=== PATIENT | female | born 1965 | race Hispanic/Latino ===

== ENCOUNTER → 2017-10-31 | Day surgery (SDC) | payer OTHER ==
[2017-10-26 13:52] LABS: BLOOD UREA NITROGEN 17 mg/dL (7-26); BUN/CREATININE RATIO 22 (6-25); CALCIUM 9.8 mg/dL (8.4-10.2); CARBON DIOXIDE 30 mmol/L (22-29); CHLORIDE 106 mmol/L (98-107); CREATININE, SERUM 0.77 mg/dL (0.57-1.11); EST GLOMERULAR FILTRATION RATE > 60 ML/MIN (60-); GLUCOSE 127 mg/dL (74-118); SODIUM 144 mmol/L (136-145)
[~2017-10-31] MED LIST: AMLODIPINE BESYL5 MG PO; CEFAZOLIN SOD 1 GM/NS 50ML 50 ML IV ONE; DEXAMETHASONE SOD PHOS INJ 4 MG/ML VIAL ONE; GLIPIZIDE5 MG PO; HYDROCHLOROTHIA25 MG PO; LIDOCAINE HCL 2% LOCAL INJ 5 ML SDV VIAL INJ ONE; LOSARTAN POTAS100 MG PO; MIDAZOLAM HCL 2 MG/2 ML VIAL ONE; ONDANSETRON HCL INJ 2 MG/ML VIAL ONE; PROPOFOL IV EMULSION 10 MG/ML 20 ML VIAL ONE; SEVOFLURANE INHAL SOLN 250 ML PEN BTL ONE; SUCRALFATE 1 GM/10 ML SUSP PO SCH
--- NOTE | 2017-10-31 16:11 | Operative Report ---
DATE OF PROCEDURE: October 31, 2017 SERVICE: Urology. PREOPERATIVE DIAGNOSES 1. Right ureterolithiasis, impacted stone. 2. Duplicated system bilaterally. 3. Microhematuria. POSTOPERATIVE DIAGNOSIS: OPERATION PERFORMED: Extracorporeal shock wave lithotripsy, right distal ureter. HISTORIAN DRAMATIC ARTS: None. ANESTHESIA: General. CLINICAL INDICATION NOTE: This is a 52-year-old patient who has duplicated system bilaterally with a stone in the distal ureter on the right side. The stone was impacted. With significant difficulty, it was possible to pass a double-J stent. Patient was brought for lithotripsy as a staged procedure in the next step. Procedure was discussed with the patient. She is aware that she will still have the stent following the procedure and she may require additional procedures. DESCRIPTION OF PROCEDURE AND FINDINGS: After proper level of anesthesia was achieved, the patient was placed in supine position. The stone was identified, brought to the focus of treatment, and treated with 2500 shocks, initially at level 4 and then it was increased to level 5 and rate initially 66 per minute for 300 shocks and then increased to 90. Patient tolerated the procedure well. The stone seems to integrate. Following the procedure, she was awake and transferred in satisfactory condition to recovery. Postop instructions given. Job#: [id number] SAK
== END | disposition home or self-care (01) ==
LOC: OR 05:33
PROVIDERS: ATTEND Urology
DX: N20.1 Calculus of ureter (principal); Q62.5 Duplication of ureter; I10 Essential (primary) hypertension; E11.9 Type 2 diabetes mellitus without complications; E66.01 Morbid (severe) obesity due to excess calories; Z01.810 Encounter for preprocedural cardiovascular examination; Z01.812 Encounter for preprocedural laboratory examination
CPT/HCPCS: 36415 ×2; 50590; 80048; 82948; 93005; J1100; J2001; J2250; J2405

== ENCOUNTER → 2017-12-14 | Day surgery (SDC) | payer OTHER ==
[2017-12-13 13:35] LABS: ANION GAP 16.1 mmol/L (8-16); BLOOD UREA NITROGEN 20 mg/dL (7-26); BUN/CREATININE RATIO 25 (6-25); CALCIUM 9.7 mg/dL (8.4-10.2); CARBON DIOXIDE 27 mmol/L (22-29); CHLORIDE 105 mmol/L (98-107); CREATININE, SERUM 0.79 mg/dL (0.57-1.11); EST GLOMERULAR FILTRATION RATE > 60 ML/MIN (60-); GLUCOSE 145 mg/dL (74-118); POTASSIUM 4.1 mmol/L (3.5-5.1); SODIUM 144 mmol/L (136-145)
[~2017-12-14] MED LIST changes: +BELLADONNA/OPIUM 60 MG SUPP PR ONE; -CEFAZOLIN SOD 1 GM/NS 50ML 50 ML IV ONE; +CEFAZOLIN SOD 2 GM/D5W 50ML 50 ML IV ONE; +FENTANYL CITRATE/PF 100MCG/2 ML INJ ONE; +IOPAMIDOL 610MG/1ML 300 MG/ML VIAL IV ONE; +LOSARTAN-HCTZ1 EAC1 PO; -PROPOFOL IV EMULSION 10 MG/ML 20 ML VIAL ONE; +PROPOFOL IV EMULSION 10 MG/ML 50 ML VIAL ONE; -SUCRALFATE 1 GM/10 ML SUSP PO SCH
--- NOTE | 2017-12-14 19:37 | Operative Report ---
DATE OF PROCEDURE: December 14, 2017 PREOPERATIVE DIAGNOSES 1. Right ureteral stone in distal ureter of the upper unit of duplicated system. 2. 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 3. Hydronephrosis of the right upper unit. 4. Microhematuria. 5. Presence of stent in the right upper unit. POSTOPERATIVE DIAGNOSES 1. Right ureteral stone in distal ureter of the upper unit of duplicated system. 2. 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 3. Hydronephrosis of the right upper unit. 4. Microhematuria. 5. Presence of stent in the right upper unit. OPERATION PERFORMED 1. Cystoscopy and retrograde of 2 ureters on the left side. This is more complicated due to the anomaly. 2. Retrograde pyelograms on the lower unit on the right side. 3. Removal of double J stent from the upper unit. 4. Right ureteroscopy with Holmium laser fragmentation of stones. 5. Removal of multiple ureteral stones from the right side. 6. Interpretation of x-ray. Radiologist not present. 7. Supervision of fluoroscopy. Radiologist not present. CHAIR FINISHER: None. ANESTHESIA: General. CLINICAL INDICATION NOTE: This is a 52-year-old patient who has a complete duplication of the collecting system on both sides. She did have high level of obstruction with a large stone in the distal ureter of the upper unit on the right side. She a double J stent in place. The patient was brought for further treatment of the stone. She knows that this may be just one additional step in management. Possibility of again needing a double J stent was explained to her. DESCRIPTION OF PROCEDURE AND FINDINGS: After proper level of anesthesia was achieved, the patient was placed in the lithotomy position and prepped and draped in sterile fashion. The ureter inspected and it was unremarkable. Bladder is normal. Double J stent is protruding from the upper ureteral unit on the right side. Two ureteral orifices are present also on the left. Open-ended catheter was used to do left bilateral retrogrades on both ureters, the upper and lower unit, both of them are unremarkable. Drainage was prompt. Following this, retrograde was done on the lower unit on the right side, and again the unit is unremarkable. The ureter is normal. No obstruction. Following this, the double J stent was removed from the right side. A retrograde pyelogram demonstrating dilation of the upper collecting system and ureter as well as the stones in the distal ureter. The guidewire was kept in place and a semi-rigid ureteroscope was used. With Holmium laser, multiple fragments of stone were fragmented. Following this, stone basket was used to remove practically all the larger stones. A guidewire was then kept in place and a double J stent, a 7-Ghanaian, 24-cm long, was properly positioned. The stone was sent for analysis. The patient tolerated the procedure well and was transferred in satisfactory condition to the recovery room. She will be followed. She may need additional procedures. Job#: [id number]
== END | disposition home or self-care (01) ==
LOC: OR 09:16
PROVIDERS: ATTEND Urology
DX: N20.1 Calculus of ureter (principal); Q62.5 Duplication of ureter; I10 Essential (primary) hypertension; M19.90 Unspecified osteoarthritis, unspecified site; E66.9 Obesity, unspecified; E11.9 Type 2 diabetes mellitus without complications; Z01.812 Encounter for preprocedural laboratory examination
CPT/HCPCS: 36415 ×2; 52356; 74420; 80048; 82948; 88300; J1100; J2001; J2250; J2405; Q9967

== ENCOUNTER → 2018-02-22 | Day surgery (SDC) | payer OTHER ==
[2018-02-20 13:55] LABS: ANION GAP 13.3 mmol/L (8-16); BLOOD UREA NITROGEN 14 mg/dL (7-26); BUN/CREATININE RATIO 18 (6-25); CALCIUM 9.5 mg/dL (8.4-10.2); CARBON DIOXIDE 29 mmol/L (22-29); CHLORIDE 101 mmol/L (98-107); CREATININE, SERUM 0.78 mg/dL (0.57-1.11); EST GLOMERULAR FILTRATION RATE > 60 ML/MIN (60-); GLUCOSE 275 mg/dL (74-118); POTASSIUM 3.3 mmol/L (3.5-5.1); SODIUM 140 mmol/L (136-145)
[~2018-02-22] MED LIST changes: +ATORVASTATIN CA10 MG PO; -BELLADONNA/OPIUM 60 MG SUPP PR ONE; +CEFAZOLIN SOD 1 GM VIAL ONE; +CEFAZOLIN SOD 2 GM/D5W 50ML 0 ML IV ONE; -CEFAZOLIN SOD 2 GM/D5W 50ML 50 ML IV ONE; +MUPIROCIN22 GM TOP; +PROPOFOL IV EMULSION 10 MG/ML 20 ML VIAL ONE; -PROPOFOL IV EMULSION 10 MG/ML 50 ML VIAL ONE
--- NOTE | 2018-02-22 20:37 | Operative Report ---
DATE OF PROCEDURE: February 22, 2018 PREOPERATIVE DIAGNOSES: 1. Right ureterolithiasis. 2. Right double J stent. 3. Right hydronephrosis. 4. Right hydroureter of the upper and duplicated system. 5. Hematuria. 6. 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 POSTOPERATIVE DIAGNOSES: 1. Right ureterolithiasis. 2. Right double J stent. 3. Right hydronephrosis. 4. Right hydroureter of the upper and duplicated system. 5. Hematuria. 6. 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 OPERATION PERFORMED: 1. Cystoscopy with removal of stent from the upper unit on the right side. 2. Right retrograde pyelograms under fluoroscopic control. 3. Right ureteroscopy under fluoroscopic control. 4. Right retrograde pyelograms in the lower unit. 5. Interpretation of x-ray. 6. Supervision of fluoroscopy. HOME TEACHING GRADES 9 THRU 12 TEACHER: None. ANESTHESIA: General. CLINICAL INDICATION NOTE: This is a 52-year-old patient who had a large blocked kidney stone that dropped to the distal ureter on the upper unit on the right side caused hydronephrosis and hydroureter on that side. The stone was treated with ureteroscopy and laser. The patient has a stent on the upper unit on the left side. She was brought for assessment. DESCRIPTION OF PROCEDURE AND FINDINGS: After proper level of anesthesia was achieved, the patient was placed in lithotomy position and prepped and draped in sterile fashion. Urethra inspected and was unremarkable. The outlet is normal. Double J stent is protruding from the upper unit on the right side. It was grasped, removed and open-end catheter inserted and retrograde pyelogram demonstrating dilation of the upper collecting system and ureter on that side. Retrograde pyelograms on the lower unit demonstrated atrophic lower unit. Following this the guidewire was kept in place and a flexible ureteroscopy was done. No stones were identified. No blockage in the distal ureter. Therefore it was elected not to replace the double J. The bladder was then irrigated. Scope was removed. Interpretation of x-ray was done by me. Radiologist not present. Supervision of fluoroscopy was done by me. Radiologist not present. 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 Job#: [id number]
== END | disposition home or self-care (01) ==
LOC: OR 09:26
PROVIDERS: ATTEND Urology
DX: N20.1 Calculus of ureter (principal); Z46.6 Encounter for fitting and adjustment of urinary device; N13.30 Unspecified hydronephrosis; Q62.5 Duplication of ureter; I10 Essential (primary) hypertension; E78.5 Hyperlipidemia, unspecified; E11.9 Type 2 diabetes mellitus without complications; Z91.040 Latex allergy status; Z01.810 Encounter for preprocedural cardiovascular examination; Z01.812 Encounter for preprocedural laboratory examination
CPT/HCPCS: 36415 ×2; 52351; 74420; 80048; 82948; 84132; 93005; J0690; J1100; J2001; J2250; J2405; Q9967

== ENCOUNTER → 2019-08-08 | Outpatient (CLI) | payer OTHER ==
[~2019-08-08] MED LIST changes: -CEFAZOLIN SOD 1 GM VIAL ONE; -CEFAZOLIN SOD 2 GM/D5W 50ML 0 ML IV ONE; -DEXAMETHASONE SOD PHOS INJ 4 MG/ML VIAL ONE; -FENTANYL CITRATE/PF 100MCG/2 ML INJ ONE; -IOPAMIDOL 610MG/1ML 300 MG/ML VIAL IV ONE; -LIDOCAINE HCL 2% LOCAL INJ 5 ML SDV VIAL INJ ONE; -MIDAZOLAM HCL 2 MG/2 ML VIAL ONE; -ONDANSETRON HCL INJ 2 MG/ML VIAL ONE; -PROPOFOL IV EMULSION 10 MG/ML 20 ML VIAL ONE; -SEVOFLURANE INHAL SOLN 250 ML PEN BTL ONE
--- NOTE | 2019-08-08 13:47 | Diagnostic Imaging Report ---
Bilateral knees, 3 views each. History: Bilateral knee pain. Findings: The soft tissues are normal. Bone mineralization is normal. There is no evidence of fracture or dislocation. There are no lytic or sclerotic lesions. There is moderate bilateral medial joint space narrowing with osteophytosis. Osteophytes are also present in the lateral and patellofemoral compartments. IMPRESSION: Bilateral tricompartmental DJD of the knees, most severely affecting the medial compartments. Signed by: Petr Sexton on 08/08/2019 1:43 PM
== END ==
LOC: RAD 12:44
PROVIDERS: ATTEND Family Medicine
DX: M25.562 Pain in left knee (principal); M25.561 Pain in right knee

== ENCOUNTER → 2019-09-10 | Outpatient (CLI) | payer OTHER ==
--- NOTE | 2019-09-10 14:56 | Diagnostic Imaging Report ---
TECHNIQUE: Magnetic resonance imaging of the RIGHT KNEE was performed WITHOUT injected contrast. HISTORY: Right knee pain COMPARISON: None available. FINDINGS: LIGAMENTS AND TENDONS: ACL: Mucoid degeneration without tear PCL: Intact Collateral ligaments: Intact Iliotibial band: Unremarkable Popliteal tendon: Intact Extensor mechanism: Intact JOINT: Menisci: Medial: Complex tearing of the body and posterior horn with extrusion Lateral: Degeneration without discrete tear Articular Cartilage: Medial Compartment: Diffuse high-grade cartilage loss with areas of full-thickness erosion and subchondral edema. Lateral Compartment: No focal defect. Patellofemoral Compartment: Focal full-thickness defect at the patellar apex and full-thickness fissuring of the central trochlea. Joint Fluid: Joint effusion with lipomatous synovitis. Small Stinson's cyst. BONE: No acute fracture. SOFT TISSUES: Otherwise, unremarkable. IMPRESSION: Medial meniscus complex tearing with extrusion results in regions of full-thickness cartilage loss and subchondral edema. Patellofemoral cartilage damage. Joint effusion with lipomatous synovitis. Signed by: Dr. Rakesh Aguirre M.D. on 09/10/2019 2:53 PM
--- NOTE | 2019-09-10 14:58 | Diagnostic Imaging Report ---
TECHNIQUE: Magnetic resonance imaging of the LEFT KNEE was performed WITHOUT injected contrast. HISTORY: Left knee pain COMPARISON: None available. FINDINGS: LIGAMENTS AND TENDONS: ACL: Mucoid degeneration without tear PCL: Intact Collateral ligaments: Intact Iliotibial band: Unremarkable Popliteal tendon: Intact Extensor mechanism: Intact JOINT: Menisci: Medial: Complex tearing of the body and posterior horn with extrusion Lateral: Degeneration without discrete tear Articular Cartilage: Medial Compartment: Diffuse high-grade cartilage loss with areas of full-thickness erosion and subchondral edema. Lateral Compartment: No focal defect. Patellofemoral Compartment: Diffuse partial-thickness cartilage loss Joint Fluid: Joint effusion. Small Stinson's cyst. BONE: No focal or infiltrative bone marrow replacing abnormality. No acute fracture. SOFT TISSUES: Otherwise, unremarkable. IMPRESSION: Medial meniscus complex tearing with extrusion results in regions of full-thickness cartilage loss and subchondral edema. Patellofemoral cartilage damage. Joint effusion. Signed by: Dr. Rakesh Aguirre M.D. on 09/10/2019 2:54 PM
== END ==
LOC: MRI 13:23
PROVIDERS: ATTEND Specialist
DX: S83.221A Peripheral tear of medial meniscus, current injury, right knee, initial encounter (principal); S83.222A Peripheral tear of medial meniscus, current injury, left knee, initial encounter

== ENCOUNTER → 2019-09-25 | Day surgery (SDC) | payer OTHER ==
[2019-09-23 15:13] LABS: ANION GAP 11.3 mmol/L (8-16); BLOOD UREA NITROGEN 14 mg/dL (7-26); BUN/CREATININE RATIO 19 (6-25); CALCIUM 9.5 mg/dL (8.4-10.2); CARBON DIOXIDE 27 mmol/L (22-29); CHLORIDE 101 mmol/L (98-107); CREATININE, SERUM 0.73 mg/dL (0.57-1.11); EST GLOMERULAR FILTRATION RATE > 60 ML/MIN (60-); GLUCOSE 266 mg/dL (74-118); POTASSIUM 3.3 mmol/L (3.5-5.1); SODIUM 136 mmol/L (136-145)
[~2019-09-25] MED LIST changes: +ACETAMINOPHEN 1000 MG/100 ML 100 ML IV ONE; +BUPIVACAINE 0.5%/EPI 30 ML SDV INJ ONE; +CEFAZOLIN SOD 1 GM/NS 50ML 100 ML IV ONE; +DEXAMETHASONE SOD PHOS INJ 4 MG/ML VIAL ONE; +FENTANYL CITRATE/PF 100MCG/2 ML INJ ONE; +KETOROLAC TROMETHAMINE 30 MG/ML VIAL ONE; +LIDOCAINE HCL 2% LOCAL INJ 5 ML SDV VIAL INJ ONE; +OMEGA 3 FISH O1 EACH PO; +ONDANSETRON HCL INJ 2MG/ML 2ML 2 MG/ML VIAL ONE; +PROPOFOL IV EMULSION 10 MG/ML 20 ML VIAL ONE; +SEVOFLURANE INHAL SOLN 250 ML PEN BTL ONE
--- OUTSIDE RECORDS SUMMARY | 2019-09-25 06:02 | XMS REPORT ---
Author Author [facility] Address Unknown Phone Unavailable Care Team Providers Care Branch Lending Officer Name Role Phone LUIS M GRAF Unavailable Unavailable PEGGY BAILEY Unavailable Unavailable Problems This patient has no known problems. Allergies, Adverse Reactions, Alerts This patient has no known allergies or adverse reactions. Medications This patient has no known medications. Results Test Description Test Time Test Comments Text Results Atomic Results Result Comments MRI KNEE LEFT WO 2019-09-10 14:53:00 [place] [id number] Patient Name: JAMISON MALDONADO MR #: [id number] : 1965 Age/Sex: 54/F Req #: [id number] [facility] Physician: Ordered by: LUIS M GRAF MD Report #: [id number] Location: MRI Room/Bed: Procedure: [id number] MRI/MRI KNEE LEFT WO Exam Date: Exam Time: REPORT STATUS: Signed TECHNIQUE: Magnetic resonance imaging of the LEFT KNEE was performed WITHOUT injected contrast. HISTORY: Left knee pain COMPARISON: None available. FINDINGS: LIGAMENTS AND TENDONS: ACL: Mucoid degeneration without tear PCL: Intact Collateral ligaments: Intact Iliotibial band: Unremarkable Popliteal tendon: Intact Extensor mechanism: Intact JOINT: Menisci: Medial: Complex tearing of the body and posterior horn with extrusion Lateral: Degeneration without discrete tear Articular Cartilage: Medial Compartment: Diffuse high-grade cartilage loss with areas of full-thickness erosion and subchondral edema. Lateral Compartment: No focal defect. Patellofemoral Compartment: Diffuse partial- thickness cartilage loss Joint Fluid: Joint effusion. Small Stinson's cyst. BONE: No focal or infiltrative bone marrow replacing abnormality. No acute fracture. SOFT TISSUES: Otherwise, unremarkable. IMPRESSION: Medial meniscus complex tearing with extrusion results in regions of full-thickness cartilage loss and subchondral edema. Patellofemoral cartilage damage. Joint effusion. Signed by: Dr. Aaron Reno M.D. on 09/10/2019 2:54 PM Dictated By: AARON RENO MD 53 Transcribed By: YEE on 09/10/191453 COPY TO: LUIS M GRAF MD MRI RIGHT KNEE WO 2019-09-10 14:50:00 [place] [address] Patient Name: JAMISON MALDONADO MR #: [id number] : 1965 Age/Sex: 54/F Req #: [id number] Adm Physician: Ordered by: LUIS M GRAF MD Report #: [id number] Location: MRI Room/Bed: Procedure: [id number] MRI/MRI RIGHT KNEE WO Exam Date: Exam Time: REPORT STATUS: Signed TECHNIQUE: Magnetic resonance imaging of the RIGHT KNEE was perfo rmed WITHOUT injected contrast. HISTORY: Right knee pain COMPARISON: None available. FINDINGS: LIGAMENTS AND TENDONS: ACL: Mucoid degeneration without tear PCL: Intact Collateral ligaments: Intact Iliotibial band: Unremarkable Popliteal tendon: Intact Extensor mechanism: Intact JOINT: Menisci: Medial: Complex tearing of the body and posterior horn with extrusion Lateral: Degeneration without discrete tear Articular Cartilage: Medial Compartment: Diffuse high-grade cartilage loss with areas of full-thickness erosion and subchondral edema. Lateral Compartment: No focal defect. Patellofemoral Compartment: Focal full-thickness defect at the patellar apex and full-thickness fissuring of the central trochlea. Joint Fluid: Joint effusion with lipomatous synovitis. Small Stinson's cyst. BONE: No acute fracture. SOFT TISSUES: Otherwise, unremarkable. IMPRESSION: Medial meniscus complex tearing with extrusion results in regions of full-thickness cartilage loss and subchondral edema. Patellofemoral cartilage damage. Joint effusion with lipomatous synovitis. Signed by: Dr. Aaron Reno M.D. on 09/10/2019 2:53 PM Dictated By: AARON RENO MD 52 Transcribed By: YEE on 09/10/191452 COPY TO: LUIS M GRAF MD KNEE THREE VIEWS BILATERAL 2019-08-08 13:41:00 [place] [address] Patient Name: JAMISON MALDONADO MR #: [id number] : 1965 Age/Sex: 54/F Req #: [id number] Adm Physician: Ordered by: LYNN NUNEZ, PEGGY Holm MD Report #: [id number] Location: [facility] Room/Bed: Procedure: [id number] DX/KNEE THREE VIEWS BILATERAL Exam Date: 08/08/19 Exam Time: 1244 REPORT STATUS: Signed Bilateral knees, 3 views each. History: Bilateral knee pain. Findings: The soft tissues are normal. Bone mineralization is normal. There is no evidence of fracture or dislocation. There are no lytic or sclerotic lesions. There is moderate bilateral medial joint space narrowing with osteophytosis. Osteophytes are also present in the lateral and patellofemoral compartments. IMPRESSION: Bilateral tricompartmental DJD of the knees, most severely affecting the medial compartments. Signed by: Petr Sexton on 08/08/2019 1:43 PM Dictated By: PETR SEXTON MD 1349 Transcribed By: YEE on 08/08/19 1342 COPY TO: PEGGY BAILEY
[2019-09-25 10:40] VITALS: BP 121/75
--- NOTE | 2019-09-26 17:49 | Operative Report ---
DATE OF PROCEDURE: 09/25/2019 SURGEON: Av Iniguez MD PREOPERATIVE DIAGNOSES: Bilateral knee medial meniscus tears, bilateral knee degenerative joint disease. POSTOPERATIVE DIAGNOSES: 1. Left knee medial meniscus tear and left knee degenerative joint disease in the knee. 2. Right knee medial meniscus tear and right knee degenerative joint disease of the knee. OPERATION/PROCEDURES PERFORMED: 1. The patient underwent a left knee exam under anesthesia, left knee arthroscopy, left knee partial medial meniscectomy, left knee chondroplasty of the patella, the trochlea, the medial femoral condyle, medial tibial plateau, and the lateral tibial plateau. 2. Right knee exam under anesthesia, right knee arthroscopy, right knee partial medial meniscectomy, right knee chondroplasty of the patella, the trochlea, the medial femoral condyle, the medial tibial plateau, the lateral femoral condyle, and lateral tibial plateau. REINFORCED IRONWORKER: There was no hearing aid assistant. ANESTHESIA: General endotracheal intubation anesthesia. IV FLUIDS: Per anesthesia record. BRIEF DESCRIPTION OF THE PATIENT'S OPERATIVE PROCEDURE: Ms. Tipton was taken to the operating room and placed in the supine position on the operative table. Following induction of general anesthesia as well as endotracheal intubation, the patient's bilateral lower extremities were examined under anesthesia. She was found to have mild effusions bilaterally. Her ligaments were stable bilaterally. The patient's bilateral lower extremities were prepped and draped in standard surgical fashion. The case was begun by performing the arthroscopy on the left knee first. A 2-port technique was used to provide this patient's arthroscopic surgery of the left knee. The scope was placed within the knee joint atraumatically. Examination of the patellofemoral joint demonstrated chondromalacia of the articulating surfaces. There were no loose bodies in the lateral gutter. The scope was advanced to the medial compartment and there was a torn medial meniscus. There was also chondromalacia of the articulating surfaces. A combination of biting forceps and motorized shaver were used to resect the torn portion of the meniscus. Chondroplasties of the medial femoral condyle and medial tibial plateau were performed at this time. Scope was then advanced to the intercondylar notch. Anterior cruciate ligament was then identified and found to be intact. The scope was advanced in the lateral compartment and there was chondromalacia of the lateral tibial plateau. A chondroplasty of this surface was performed. The scope was then placed in the suprapatellar pouch and chondroplasties of the patellar and trochlear were performed. The knee was deflated with a sterile normal saline. Each of the portal sites were closed using nylon suture. The portal site as well as the knee itself were injected with 0.5% Marcaine with epinephrine. Attention was then turned to the right knee. Again, a 2-port technique was used to provide the patient's arthroscopic evaluation of the right knee. Examination of the suprapatellar pouch and medial and lateral gutters found no evidence of loose bodies. There was no evidence of chondromalacia of the patella or trochlear surfaces. The scope was advanced to the medial compartment. Examination of the medial compartment demonstrated a torn macerated medial meniscus. There was also advanced arthrosis of the medial compartment. Chondroplasties of the medial femoral condyle and medial tibial plateau were performed at this time. A combination of biting forceps and motorized shaver were used to resect the torn portion of the meniscus. The scope was then advanced to the intercondylar notch. Anterior cruciate ligament was identified and found to be intact. The scope was then advanced to the lateral compartment. There was chondromalacia of the lateral femoral condyle and lateral tibial plateau. Chondroplasties of each of these surfaces were performed at this time. The scope was then placed in the suprapatellar pouch and a chondroplasty of the patella and trochlea was performed. The knee was then deflated with sterile normal saline. The portal sites were closed using 4-0 nylon suture. The portal sites as well as knee itself were injected with 0.5% Marcaine with epinephrine. Both knees were dressed sterilely. The patient was then awakened and taken to the postanesthesia care in stable condition. MD ELLA Tao/CIRO /[id number]
== END | disposition home or self-care (01) ==
LOC: OR 05:51
PROVIDERS: ATTEND Specialist
DX: S83.222A Peripheral tear of medial meniscus, current injury, left knee, initial encounter (principal); S83.221A Peripheral tear of medial meniscus, current injury, right knee, initial encounter; M17.0 Bilateral primary osteoarthritis of knee; Z01.810 Encounter for preprocedural cardiovascular examination; Z01.812 Encounter for preprocedural laboratory examination; E11.9 Type 2 diabetes mellitus without complications; I10 Essential (primary) hypertension; Z87.442 Personal history of urinary calculi; Z83.3 Family history of diabetes mellitus; Z82.49 Family history of ischemic heart disease and other diseases of the circulatory system; Z91.040 Latex allergy status; Z79.84 Long term (current) use of oral hypoglycemic drugs
CPT/HCPCS: 29881; 36415 ×2; 80048; 82948; 93005; J0131; J0690; J1100; J1885; J2001; J2405; J2704; J3010